=== PATIENT | male | born 1995 | race Caucasian/White ===

== ENCOUNTER 2016-10-06 09:58 | Emergency (ER) | payer SELFPAY ==
[2016-10-06] MEDS ORDERED: KETOROLAC TROMETHAMINE 30 MG/ML VIAL ONE (10:37)
[2016-10-06] MEDS ORDERED: ONDANSETRON HCL 4 MG/2 ML VIAL ONE (10:37)
[2016-10-06] MEDS ORDERED: PANTOPRAZOLE 40 MG VIAL IV ONE (10:38)
[2016-10-06 10:43] LABS: BASOPHIL# 0.2 X 10^3uL (0.0-0.1); BASOPHILS 2.6 % (0.0-2.0); EOSINOPHILS 2.7 % (0.0-6.0); EOSINOPHILS# 0.2 X 10^3uL (0.0-0.4); HEMATOCRIT 48.4 % (42.0-54.0); HEMOGLOBIN 16.3 g/dL (14.0-18.0); LYMPHOCYTES# 3.1 X 10^3uL (0.8-3.8); MEAN CORPUS. HGB CONCENTRATION 33.6 g/dL (32.0-36.0); MEAN CORPUSCULAR HEMOGLOBIN 30.9 pg (29.0-35.0); MEAN PLATELET VOLUME 8.8 fL (7.4-10.4); MONOCYTES 5.9 % (2.0-10.0); MONOCYTES# 0.4 X 10^3uL (0.2-1.0); NEUTROPHILS 47.8 % (54.0-75.0); NEUTROPHILS# 3.6 X 10^3uL (2.6-6.7); PLATELET COUNT 239 X 10^3uL (130-440); RAPID STREP SCRN CUL IF NEG NEGATIVE; RED BLOOD COUNT 5.26 X 10^6uL (4.20-6.10); RED CELL DISTRIBUTION WIDTH 12.9 % (11.5-14.5); WHITE BLOOD COUNT 7.5 X 10^3uL (3.9-10.7)
[2016-10-06 11:11] LABS: ALBUMIN 4.1 g/dL (3.5-5.0); ALKALINE PHOSPHATASE 49 U/L (38-126); ALT 35 U/L (21-72); AST 30 U/L (17-59); BILIRUBIN, DIRECT 0.1 mg/dL (0.0-0.4); BILIRUBIN, TOTAL 0.6 mg/dL (0.2-1.3); BLOOD UREA NITROGEN 13 mg/dL (9-20); C-REACTIVE PROTEIN < 5.0 mg/L (<10.0); CALCIUM 9.5 mg/dL (8.4-10.2); CHLORIDE 109 mmol/L (98-107); EST GLOMERULAR FILTRATION RATE > 60 mL/min; GLUCOSE 87 mg/dL (70-100); LIPASE 380 U/L (23-300); SODIUM 143 mmol/L (137-145); TOTAL PROTEIN 7.1 g/dL (6.3-8.2)
--- NOTE | 2016-10-06 11:14 | ER NURSING DOCUMENTATION ---
Nurse's Notes [facility] Name:Valentín Elmore Age:21 yrs Sex:Male :1995 Arrival Date:10/06/2016 Time:09:58 Bed4 Private MD: Diagnosis:Gastroenteritis vs. Food Poisoning Presentation: 10/06 10:06 Presenting complaint: Patient states: N/V/D since yesterday. pt now has abd pain and st throat pain. Transition of care: Home. 10:06 Acuity: JENIFER 3 st 10:06 Method Of Arrival: Private Vehicle st Triage Assessment: 10:07 General: Appears in no apparent distress, Behavior is cooperative. Pain: Complains of st pain in abdomen, thorat and headache Pain currently is 7 out of 10 on a pain scale. Pain began 1 day ago. Cardiovascular: No deficits noted. Respiratory: No deficits noted. GI: Abdomen is flat, non- distended Abd is soft X 4 quads Abdomen is tender to palpation in right upper quadrant and left upper quadrant. Historical: - Allergies: No known drug Allergies; - Home Meds: 1. None - PSHx: Tonsillectomy; - Tetanus: < 10 years. - Ebola Screening: : Patient denies exposure to infectious person. Patient denies travel to an Ebola-affected area in the 21 days before illness onset. . - Immunization history: Unable to Obtain. - Social history: Smoking status: Patient uses tobacco products, current every day smoker. Patient uses alcohol marijuana. Screenin:08 Infectious Disease Risk None. Abuse screen: Denies threats or abuse. Denies injuries st from another. pt feels safe at home. Nutritional screening: No deficits noted. Vital Signs: 10:08 BP 118 / 69; Pulse 74; Resp 16; Temp 97.6; Pulse Ox 95% on R/A; Pain 7/10; st 10:27 BP 127 / 68; Pulse 63; Pulse Ox 94% ; st 10:49 Pain 3/10; st 11:00 BP 113 / 68; Pulse 66; Pulse Ox 94% on R/A; st ED Course: 10:01 Patient arrived in ED. ama 10:06 DasiaShruthi hernandez, RN is Primary Nurse. st 10:[address] 10:08 Fredy Mello MD is Attending Physician. be 10:09 Valuables Remains with patient Patient has correct armband on for positive st identification. Placed in gown. Bed in low position. Call light in reach. Side rails up X 1. Pulse Ox - RN Monitoring Only NIBP On - RN Monitoring Only. 10:54 Diet: Patient given juice. st Administered Medications: 10:27 Drug: Zofran 8 mg; Route: IVP; Infused Over: 2 mins; Site: left antecubital; st 11:13 Follow up: Response: Nausea is decreased st 10:28 Drug: NS 0.9% 1000 ml; Route: IV; Rate: bolus; Site: left antecubital; st 11:13 Follow up: IV Status: Completed infusion; IV Intake: 1000ml st 10:28 Drug: Toradol 30 mg; Route: IVP; Site: left antecubital; st 11:13 Follow up: Response: Pain is decreased st 10:28 Drug: Protonix 40 mg; Route: IVPB; Site: left antecubital; st 10:35 Follow up: IV Status: Completed infusion; IV Intake: 10ml st Intake: 10:35 IV: 10ml; Total: 10ml. st 11:13 IV: 1000ml; Total: 1010ml. st Outcome: 10:56 Discharge ordered by . be 11:12 Discharged to home ambulatory. st 11:12 Condition: improved 11:12 Discharge instructions given to patient, Instructed on discharge instructions, follow up and referral plans. medication usage, Prescriptions given X 2. 11:12 IV D/Noe 11:14 Patient left the ED. st 10/07 09:28 Discharge F/U Call: Unable to reach: no answer st Signatures: Shruthi Davis RN RN Fredy Mello MD MD be Averdick, Andrew, Reg Reg ama
--- NOTE | 2016-10-06 11:14 | ER PHYSICIAN DOCUMENTATION ---
Physician Documentation [facility] Name:Valentín Elmore Age:21 yrs Sex:Male :1995 Arrival Date:10/06/2016 Time:09:58 Bed4 Private MD: Fredy Lin Disposition: 10/06/16 10:56 Discharged to Home/Self Care. Impression: Gastroenteritis vs. Food Poisoning. - Condition is Good. - Discharge Instructions: Gastroenteritides - FOOD POISONING vs Gastro-Ent (6yr - Adult). - Prescriptions for Zofran 8 mg Oral Tablet - take 1 tablet by ORAL route every 12 hours; 20 tablet. Imodium A- D 2 mg Oral Tablet - take 2 tablet by ORAL route one time after 1st loose stool and 1 tablet (2 mg) after each subsequent bowel movement; do not exceed 16 mg a day; 24 tablet. - Work release form, Medical Reconciliation form form. - Follow up: Private Physician; When: As needed; Reason: If symptoms return, Worsening of condition. - Problem is new. - Symptoms have improved. HPI: 10/06 12:28 This 21 yrs old Male presents to ER via Private Vehicle with complaints of be Abdominal Pain, Nausea/Vomiting/Diarrhea. 12:28 The patient presents with abdominal pain that is diffuse. Onset: The symptoms/episode be began/occurred this morning. Associated signs and symptoms: Pertinent positives: diarrhea, vomiting, Pertinent negatives: blood in stools, dysuria, fever. This patient does not have any risk factors related to abdominal pain. Historical: - Allergies: No known drug Allergies; - Home Meds: 1. None - PSHx: Tonsillectomy; - Tetanus: < 10 years. - Ebola Screening: : Patient denies exposure to infectious person. Patient denies travel to an Ebola-affected area in the 21 days before illness onset. . - Immunization history: Unable to Obtain. - Social history: Smoking status: Patient uses tobacco products, current every day smoker. Patient uses alcohol marijuana. ROS: 12:29 Abdomen/GI: Positive for abdominal pain, nausea, vomiting, diarrhea, Negative for be hematemesis, black/tarry stool, rectal bleeding. 12:29 All other systems are negative. Exam: 12:29 Constitutional: This is a well developed, well nourished patient who is awake, alert, be and in no acute distress. Head/Face: Normocephalic, atraumatic. Eyes: Pupils equal round and reactive to light, extra-ocular motions intact. Lids and lashes normal. Conjunctiva and sclera are non-icteric and not injected. Cornea within normal limits. Periorbital areas with no swelling, redness, or edema. ENT: Nares patent. No nasal discharge, no septal abnormalities noted. Tympanic membranes are normal and external auditory canals are clear. Oropharynx with no redness, swelling, or masses, exudates, or evidence of obstruction, uvula midline. Mucous membranes moist. 12:29 Skin: Warm, dry with normal turgor. Normal color with no rashes, no lesions, and no be evidence of cellulitis. 12:29 Abdomen/GI: Bowel sounds: normal, Palpation: abdomen is soft and non-tender. Vital Signs: 10:08 BP 118 / 69; Pulse 74; Resp 16; Temp 97.6; Pulse Ox 95% on R/A; Pain 7/10; st 10:27 BP 127 / 68; Pulse 63; Pulse Ox 94% ; st 10:49 Pain 3/10; st 11:00 BP 113 / 68; Pulse 66; Pulse Ox 94% on R/A; st MDM: 10:08 Patient medically screened. be 12:29 Differential diagnosis: cholecystitis, Hepatitis, pancreatitis. Data reviewed: vital be signs, nurses notes, lab test result(s), and as a result, I will discharge patient, administer IV fluids, NS bolus, prescribe pain medication, Dilaudid, Toradol, Zofran and pantoprazole. 10/06 10:44 Order name: RAPID STREP SCRN CUL IF NEG; Complete Time: 12:28 EDMS 10/06 10:54 Interpretation: Normal. be 10/06 10:52 Order name: LACTATE; Complete Time: 10:55 EDMS 10/06 10:54 Interpretation: Normal. be 10/06 10:52 Order name: CBC AUTO DIF, MDIF/RMOR IF IND; Complete Time: 12:28 EDMS 10/06 10:55 Interpretation: Normal Except: left shift. be 10/06 11:12 Order name: BASIC METABOLIC PANEL; Complete Time: 12:28 EDMS 10/06 12:27 Interpretation: Normal. be 10/06 11:12 Order name: HEPATIC PANEL; Complete Time: 12:28 EDMS 10/06 12:28 Interpretation: Normal. be 10/06 11:12 Order name: LIPASE; Complete Time: 12:28 EDMS 10/06 12:28 Interpretation: Normal. be 10/06 11:12 Order name: C-REACTIVE PROTEIN; Complete Time: 12:28 EDMS 10/06 12:28 Interpretation: Normal. be 10/07 09:49 Order name: THROAT FOR BETA STREP EDMS 10/06 10:12 Order name: NPO; Complete Time: 10:28 be Dispensed Medications: 10:27 Drug: Zofran 8 mg; Route: IVP; Infused Over: 2 mins; Site: left antecubital; st 11:13 Follow up: Response: Nausea is decreased st 10:28 Drug: NS 0.9% 1000 ml; Route: IV; Rate: bolus; Site: left antecubital; st 11:13 Follow up: IV Status: Completed infusion; IV Intake: 1000ml st 10:28 Drug: Toradol 30 mg; Route: IVP; Site: left antecubital; st 11:13 Follow up: Response: Pain is decreased st 10:28 Drug: Protonix 40 mg; Route: IVPB; Site: left antecubital; st 10:35 Follow up: IV Status: Completed infusion; IV Intake: 10ml st Signatures: Shruthi Davis RN RN Fredy Zuniga MD MD be
== END 2016-10-06 11:14 | disposition home or self-care (01) ==
LOC: ER 09:58
DX: R11.2 Nausea with vomiting, unspecified (principal); R19.7 Diarrhea, unspecified; R10.9 Unspecified abdominal pain; F17.210 Nicotine dependence, cigarettes, uncomplicated
CPT/HCPCS: 80048; 80076; 83605; 83690; 85025; 86140; 86403; 87081; 96361; 96374; 96375; 99283; J1885; J2405